=== PATIENT | male | born 1965 | race Caucasian/White ===

== ENCOUNTER → 2017-01-11 | Outpatient (CLI) | payer OTHER ==
[~2017-01-11] VITALS: Ht 182.9 cm; Wt 103.0 kg
[~2017-01-11] MED LIST: ALLEGRA ALLERG180 MG PO; AMLODIPINE-BEN1 EAC5 PO; BYSTOLIC5 MG PO; DAILY MULTIPLE1 EACH PO; LANSOPRAZOLE30 MG PO; LO-DOSE ASPIRIN81 M2 PO
== END | disposition home or self-care (01) ==
LOC: AMB 12:23
PROC: 0DBL8ZX Excision of Transverse Colon, Via Natural or Artificial Opening Endoscopic, Diagnostic (ICD-10-PCS; principal; 2017-01-11)
DX: Z12.11 Encounter for screening for malignant neoplasm of colon (principal); Z80.0 Family history of malignant neoplasm of digestive organs; D12.3 Benign neoplasm of transverse colon; K64.8 Other hemorrhoids; R17 Unspecified jaundice; K21.9 Gastro-esophageal reflux disease without esophagitis; I10 Essential (primary) hypertension; E78.5 Hyperlipidemia, unspecified; Z80.41 Family history of malignant neoplasm of ovary; Z82.49 Family history of ischemic heart disease and other diseases of the circulatory system; Z79.82 Long term (current) use of aspirin
CPT/HCPCS: 88305; J2250; J3010